=== PATIENT | male | born 1955 | race Caucasian/White ===

== ENCOUNTER 2021-10-21 16:06 | Inpatient (IN) ==
[2021-10-21 16:17] LABS: ABG BASE EXCESS -2.7 mmol/L (-2.0-2.0); ABG HCO3 19.7 mmol/L (22-26)
[2021-10-21 16:18] LABS: ABG ALLEN TEST POS
[2021-10-21 16:21] VITALS: BMI 33.0
[2021-10-21] MEDS ORDERED: SOLU-Medrol 125 MG VIAL IVP ONE (16:32)
--- NOTE | 2021-10-21 16:38 | DR.URIAD ---
HPI Time Seen Time Seen by Provider: 10/21/21 16:32 PCP Primary Care Physician: RAJAT HPI Comment HPI Comment: Worsening sob and cough x past several days after dx with covid two weeks ago as below; no cp, fevers or chills currently; no abd pain, n/v/d; he is not on oxygen at home Complaint Chief Complaint:: Patient's states that the patient has had Covid for roughly for two weeks. They came to the ER last Suday and recieved prescriptions for meclizine and methylprenisone. He was already taking Azithomycin, albuterol, benzonate, hydroxychloroquine, and Ivermectin. He has gotten worse over the last week and is having issues keeping his oxygen above 90. Source History Provided: Significant Other Mode of Arrival Mode of Arrival: Ambulatory Timing Onset of Chief Complaint: 10/07/21 PMH PMH Past Medical History: Yes Past Medical History: Coronary Artery Disease and [place] Past Medical History Comment: X5 stents Past Surgical History: Yes Surgical History: Angioplasty/Stents and Joint Replacement Past Surgical History Comment: left Hip and right knee Family History History of Family Medical Conditions: Yes Family Medical History: Diabetes Mellitus, Cancer, [place] and Coronary Artery Disease Social History Does patient currently use any type of tobacco product: No Have you used tobacco products in the last 12 months: No Type of Tobacco Use: None Does any household member use tobacco: No Alcohol Use: None Do you use any recreational Drugs:: No Lives With: Spouse Lives Where: Home Infectious screening In the last 2 months have you had wt loss of >10#?: NO Have you had fever, night sweats or hemotysis?: No Have you traveled outside the country in the last 6 months?: No Isolation: Droplet ROS Review of Systems Constitutional: No Symptoms Reported Eyes: No Symptoms Reported ENTM: No Symptoms Reported Cardiovascular: No Symptoms Reported Gastrointestinal/Abdominal: No Symptoms Reported Genitourinary: No Symptoms Reported Neurological: No Symptoms Reported Musculoskeletal: No Symptoms Reported Integumentary: No Symptoms Reported Hematologic/Lymphatic: No Symptoms Reported Endocrine: No Symptoms Reported Psychiatric: No Symptoms Reported PE Vital Signs Vitals: Temperature 98.1 F Pulse Rate 107 Respiratory Rate 18 Blood Pressure [Left Arm] 113/74 Blood Pressure 119/76 O2 Sat by Pulse Oximetry 81 General Limitations: No Limitations General Appearance: Alert and Other (obviously weak with walking, using accessory muscles) Head Head Exam: Normal Inspection Eyes Eye exam: Normal Appearance ENT ENT Exam: Normal Exam External Ear Exam: Normal External Inspection TM/Canal Exam: Bilateral: Normal Nose Exam: Normal Nose Exam Nasal Speculum Exam: Bilateral: Normal Mouth Exam: Normal Inspection Throat Exam: Normal Inspection Neck Neck Exam: Normal Inspection Chest Chest Inspection: Normal Inspection Respiratory Respiratory Exam: Normal Lung Sounds Bilat and Accessory Muscle Use Respiratory Exam: Bilateral: Clear to Auscultation Cardiovascular Cardiovascular Exam: Normal Rhythm and Tachycardia Abdominal Exam Abdominal Exam: Normal Inspection, Normal Bowel Sounds and Soft Extremeties Extremities Exam: Normal Inspection Back Back Exam: Normal Inspection Neurologic Neurological Exam: Alert and Oriented X3 Psychiatric Psychiatric Exam: Normal Affect and Normal Mood Skin Skin Exam: Warm, Dry, Intact and Normal Color MDM Differential Diagnosis Differential Diagnosis: Pneumonia COURSE Reevaluation 1st: Unchanged 2nd: Improved (resting flat on back with nrb; says "I feel better".) Consultation Called: 18:40 Education/Counseling Education/Counseling: Patient and Family Educated On: Treatment, Diagnosis and Prognosis Critical Care Notes Total Time (mins): 30 Critical Diagnosis: covid pneu, sepsis, hypoxic resp failure Critical Interventions: abg, oxgyen inc to nrb, labs, ct, abx, steroids dx, prognosis and admission requirements d/w pt and discussed admission with Dr Braeden VELA Labs Reviewed Result Diagrams: 10/21/21 16:18 10/21/21 16:48 Laboratory: WBC 10.2 X10^3/uL (3.6-10.0) H 10/21/21 16:18 RBC 5.29 X10^6/uL (4.7-6.0) 10/21/21 16:18 Hgb 15.6 g/dL (13.5-18.0) 10/21/21 16:18 Hct 44.8 % (42.0-54.0) 10/21/21 16:18 MCV 84.7 fL (80.0-100.0) 10/21/21 16:18 MCH 29.5 pg (27.0-34.0) 10/21/21 16:18 MCHC 34.8 g/dL (33.0-35.0) 10/21/21 16:18 RDW 14.7 % (11.6-16.5) 10/21/21 16:18 Plt Count 262 X10^3/uL (150.0-450.0) 10/21/21 16:18 Plt Count Comment Adequate (ADEQUATE) 10/21/21 16:18 MPV 8.1 fL (7.4-11.0) 10/21/21 16:18 Neut % (Auto) 90.1 % (42.0-75.0) H 10/21/21 16:18 Lymph % (Auto) 5.1 % (21.0-51.0) L 10/21/21 16:18 [place] % (Auto) 4.6 % (0.0-13.0) 10/21/21 16:18 Eos % (Auto) 0.0 % (0.9-2.9) L 10/21/21 16:18 Baso % (Auto) 0.2 % (0.2-1.0) 10/21/21 16:18 Neut # (Auto) 9.2 x10^3/uL (2.2-4.8) H 10/21/21 16:18 Lymph # (Auto) 0.5 X10^3/uL (1.3-2.9) L 10/21/21 16:18 [place] # (Auto) 0.5 x10^3/uL (0.3-0.8) 10/21/21 16:18 Eos # (Auto) 0.0 x10^3/uL (0.0-0.2) 10/21/21 16:18 Baso # (Auto) 0.0 X10^3/uL (0.0-0.1) 10/21/21 16:18 Absolute Nucleated RBC 0.1 /100WBC 10/21/21 16:18 Total Counted 100 10/21/21 16:18 Neutrophils % (Manual) 92 % (39-76) H 10/21/21 16:18 Lymphocytes % (Manual) 3 % (13-43) L 10/21/21 16:18 Monocytes % (Manual) 5 % (4-9) 10/21/21 16:18 Plt Morphology Comment Normal (NORMAL) 10/21/21 16:18 RBC Morphology Normal (NORMAL) 10/21/21 16:18 Sample Site Lrad 10/21/21 16:09 ABG pH 7.470 (7.35-7.45) H 10/21/21 16:09 ABG pCO2 27.0 mmHg (35.0-45.0) L 10/21/21 16:09 ABG pO2 45.0 mmHg (80.0-100.0) L* 10/21/21 16:09 ABG HCO3 19.7 mmol/L (22-26) L 10/21/21 16:09 ABG O2 Saturation 84.0 % (90-100) L* 10/21/21 16:09 ABG Base Excess -2.7 mmol/L (-2.0-2.0) L 10/21/21 16:09 Jose G Test Pos 10/21/21 16:09 A-a Gradient 71.0 mmHg 10/21/21 16:09 FiO2 21.0 10/21/21 16:09 Blood Gas Comments Pt mariano well elj cdn 10/21/21 16:09 Sodium 136 mmol/L (136-145) 10/21/21 16:48 Corrected Sodium 136 mmol/L (136-145) 10/21/21 16:48 Potassium 4.2 mmol/L (3.5-5.1) 10/21/21 16:48 Chloride 101 mmol/L (98-107) 10/21/21 16:48 Carbon Dioxide 19.8 mmol/L (21-32) L 10/21/21 16:48 BUN 26 mg/dL (7-18) H 10/21/21 16:48 Creatinine 1.03 mg/dL (0.70-1.30) 10/21/21 16:48 Est GFR (MDRD) Af Amer > 60 (>60) 10/21/21 16:48 Est GFR (MDRD) Non-Af > 60 (>60) 10/21/21 16:48 Glucose 112 mg/dL (65-99) H 10/21/21 16:48 Calcium 8.5 mg/dL (8.5-10.1) 10/21/21 16:48 Creatine Kinase 60 Units/L (39-308) 10/21/21 16:48 CK-MB (CK-2) 0.4 ng/mL (0-4.0) 10/21/21 16:48 CK/CKMB % Calc 0.7 % (<4) 10/21/21 16:48 Troponin I High Sens 6.3 ng/L (4.0-60.0) 10/21/21 16:48 SARS-CoV-2 (PCR) Positive (NEGATIVE) A 10/21/21 16:30 Influenza Type A (PCR) Negative (NEGATIVE) 10/21/21 16:30 Influenza Type B (PCR) Negative (NEGATIVE) 10/21/21 16:30 RSV (PCR) Negative (NEGATIVE) 10/21/21 16:30 Opioid Opioid Risk Tool Age (Guido box if 16-45): No History of Preadolescent Sexual Abuse: No Total: 0 Total Score Risk Category: Low Risk Copyright: [facility] predicting aberrant behaviors Diagnosis Discharge Problem: Hypoxia Instructions Forms: Precautions for COVID19 [facility] Patient Portal Social Distancing
[2021-10-21] MEDS ORDERED: NS 100 ML IV 100 ML ONE (16:46)
[2021-10-21 16:49] LABS: BASOPHILS % (AUTO) 0.2 % (0.2-1.0); HEMATOCRIT 44.8 % (42.0-54.0); HEMOGLOBIN 15.6 g/dL (13.5-18.0); LYMPHOCYTES # (AUTO) 0.5 X10^3/uL (1.3-2.9); LYMPHOCYTES % (AUTO) 5.1 % (21.0-51.0); MEAN CORPUSCULAR HEMOGLOBIN 29.5 pg (27.0-34.0); MEAN CORPUSCULAR HGB CONC 34.8 g/dL (33.0-35.0); MEAN CORPUSCULAR VOLUME 84.7 fL (80.0-100.0); MEAN PLATELET VOLUME 8.1 fL (7.4-11.0); MONOCYTES # (AUTO) 0.5 x10^3/uL (0.3-0.8); MONOCYTES % (AUTO) 4.6 % (0.0-13.0); NEUTROPHILS # (AUTO) 9.2 x10^3/uL (2.2-4.8); NEUTROPHILS % (AUTO) 90.1 % (42.0-75.0); RED BLOOD COUNT 5.29 X10^6/uL (4.7-6.0); RED CELL DISTRIBUTION WIDTH 14.7 % (11.6-16.5); WHITE BLOOD COUNT 10.2 X10^3/uL (3.6-10.0)
[2021-10-21 17:00] LABS: BLOOD UREA NITROGEN 26 mg/dL (7-18); CALCIUM 8.5 mg/dL (8.5-10.1); CARBON DIOXIDE 19.8 mmol/L (21-32); CHLORIDE 101 mmol/L (98-107); COR NA(FOR HYPERGLY) 136 mmol/L (136-145); CREATININE 1.03 mg/dL (0.70-1.30); SODIUM 136 mmol/L (136-145); eGFR NON BLACK RACES > 60 (>60)
[2021-10-21 17:10] LABS: PLATELET MORPHOLOGY COMMENT NORMAL (NORMAL)
[2021-10-21] MEDS ORDERED: SOLU-Medrol 125 MG VIAL ONE (17:16)
[2021-10-21] MEDS ORDERED: ZOSYN VIAL 4.5 GRAMS IV ONE (17:17)
[2021-10-21] MEDS ORDERED: NS 100 ML IV + SPIKE MINIBAG* 100 ML IV ONE (17:17)
[2021-10-21] MEDS: ZOSYN VIAL 4.5 GRAMS 4.5 G in NS 100 ML IV 100 ML IV SCH ×2 (17:24→23:09)
[2021-10-21 17:29] LABS: CKMB % 0.7 % (<4); CREATINE KINASE 60 Units/L (39-308); CREATINE KINASE MB 0.4 ng/mL (0-4.0)
--- NOTE | 2021-10-21 18:01 | CT ---
HISTORYCOVID POSITIVE, HYPOXIA, LOW [id number] WITH CONCOMPARISONNoneTECHNIQUEMultiple axial images of the chest were obtained from the thoracic inlet to the upper abdomen after the administration of IV contrast. 3D reconstructions utilizing axial MIPS imaging was performed and reviewed. Dose reduction techniques including Automated Exposure Control (AEC) and adjustment of mA and kV were utilized.FINDINGSThe mediastinum does not demonstrate significant pathological lymphadenopathy. There is no pericardial effusion observed. Coronary arterial calcifications are noted. The thoracic aorta is normal in its contour without evidence for aneurysmal dilatation. The central pulmonary arterial system does not demonstrate central filling defects to suggest pulmonary emboli. More distal branches are not well evaluated due to timing of the bolus.Evaluation of the lung parenchyma demonstrates hazy scattered ground-glass opacities throughout the lung dixon compatible history of COVID-19 pneumonia.. No pulmonary nodule or mass can be identified. The bony thorax demonstrates mild degenerative changes in the lower spine.. The visualized portions of the upper abdomen are grossly unremarkable .IMPRESSIONScattered ground-glass opacities throughout the lung dixon compatible history of COVID-19 pneumonia.Electronically signed by: JONATHON MCALLISTER (Oct 21, 2021 17:59:54)
[2021-10-21] MEDS ORDERED: ZOSYN VIAL 3.375 GRAMS 3.375 G in NS 100 ML IV + SPIKE MINIBAG* 100 ML IV SCH (18:52)
[2021-10-21] MEDS ORDERED: OFIRMEV IV 1000 MG VIAL 1,000 MG/100 ML VIAL IV PRN (18:54)
[2021-10-21] MEDS ORDERED: TUSSIONEX PENNKINETIC SUSP PO PRN (18:54)
[2021-10-21] MEDS ORDERED: ZOFRAN INJ 4 MG VIAL IVP PRN (18:54)
[2021-10-21] MEDS ORDERED: NS 1,000 ML IV 1,000 ML ONE (19:10)
[2021-10-21] MEDS ORDERED: ZITHROMAX INJ 500 MG VIAL IV ONE (19:10)
[2021-10-21] MEDS ORDERED: D5W 250 ML IV 250 ML IV ONE (19:11)
[2021-10-21] MEDS: NS 1,000 ML IV 1,000 ML IV SCH (19:15)
[2021-10-21] MEDS: ZITHROMAX INJ 500 MG VIAL 500 MG in D5W 250 ML IV 250 ML IV SCH (19:16)
[2021-10-21] MEDS: SOLU-Medrol 125 MG VIAL IVP SCH (19:16)
[2021-10-22] MEDS ORDERED: ZOSYN VIAL 4.5 GRAMS IV ONE (05:09)
[2021-10-22 05:12] LABS: BASOPHILS % (AUTO) 0.1 % (0.2-1.0); BLOOD UREA NITROGEN 24 mg/dL (7-18); CALCIUM 8.3 mg/dL (8.5-10.1); CARBON DIOXIDE 20.3 mmol/L (21-32); CHLORIDE 103 mmol/L (98-107); COR NA(FOR HYPERGLY) 137 mmol/L (136-145); CREATININE 0.99 mg/dL (0.70-1.30); HEMATOCRIT 38.9 % (42.0-54.0); HEMOGLOBIN 13.3 g/dL (13.5-18.0); LYMPHOCYTES # (AUTO) 0.5 X10^3/uL (1.3-2.9); LYMPHOCYTES % (AUTO) 10.6 % (21.0-51.0); MEAN CORPUSCULAR HGB CONC 34.2 g/dL (33.0-35.0); MEAN CORPUSCULAR VOLUME 84.8 fL (80.0-100.0); MONOCYTES # (AUTO) 0.1 x10^3/uL (0.3-0.8); MONOCYTES % (AUTO) 2.7 % (0.0-13.0); NEUTROPHILS # (AUTO) 3.7 x10^3/uL (2.2-4.8); NEUTROPHILS % (AUTO) 86.6 % (42.0-75.0); RED BLOOD COUNT 4.59 X10^6/uL (4.7-6.0); RED CELL DISTRIBUTION WIDTH 14.4 % (11.6-16.5); SODIUM 135 mmol/L (136-145); WHITE BLOOD COUNT 4.3 X10^3/uL (3.6-10.0); eGFR NON BLACK RACES > 60 (>60)
[2021-10-22] MEDS: ZOSYN VIAL 4.5 GRAMS 4.5 G in NS 100 ML IV 100 ML IV SCH ×3 (06:18→21:46)
[2021-10-22] MEDS ORDERED: PULMICORT NEB TX 0.5 MG NEB ONE (07:59)
[2021-10-22] MEDS ORDERED: BROVANA ONE (07:59)
[2021-10-22] MEDS: BROVANA IN SCH ×2 (08:39→21:34)
[2021-10-22] MEDS: PULMICORT NEB TX 0.5 MG NEB SCH ×2 (08:39→21:34)
[2021-10-22] MEDS: NS 1,000 ML IV 1,000 ML IV SCH ×2 (09:00→21:45)
[2021-10-22] MEDS ORDERED: REMDESIVIR 200 MG in NS 100 ML IV 140 ML IV ONE (09:46)
[2021-10-22] MEDS: VITAMIN A PO SCH (10:50)
[2021-10-22] MEDS: PROTONIX TAB 40 MG PO SCH (10:50)
[2021-10-22] MEDS: VITAMIN C PO SCH (10:50)
[2021-10-22] MEDS: PLAVIX PO SCH (10:50)
[2021-10-22] MEDS: ZITHROMAX INJ 500 MG VIAL 500 MG in D5W 250 ML IV 250 ML IV SCH (10:55)
[2021-10-22] MEDS: LIPITOR TAB 80 MG PO SCH (10:55)
[2021-10-22] MEDS: SOLU-Medrol 125 MG VIAL IVP SCH ×2 (10:59→18:28)
[2021-10-22] MEDS: VITAMIN D3 125 mcg (5,000 UNITS) PO SCH (10:59)
[2021-10-22] MEDS: ZESTRIL TAB 5 MG PO SCH (10:59)
--- NOTE | 2021-10-22 11:55 | DR.H&P ---
H&P History & Physical for Day of: H&P Date: 10/22/21 Chief Complaint Chief Complaint: cough, shortness of breath Allergies Allergies Allergy/AdvReac Type Severity Reaction Status Date / Time No Known Drug Allergies Allergy Verified 10/15/21 17:20 History of Present Illness History of Present Illness: Mr Cuellar is a 66y/o male with a PMH of CAD s/p PCI x 5 stents presented with worsening dyspnea and weakness. Patient tested positive for covid about 2 weeks ago. He reports getting weaker and having worsening dyspnea. He is currently on HHFNC at FiO2 62%. He reports productive cough. CT-chest in the ER showed bilateral ground glass opacities. He currently feels better, sats > 92%. Labs/imaging reviewed Plan: Admit to ICU with COVID-19 protocol, continue IV Solumedrol and antibiotics. Add Remdesivir. Add vitamin support. Continue hydration with NS. Wean O2 as tolerated to keep sats > 88%. Add lovenox for DVT ppx. Monitor AM labs/imaging. Time spent for clinical assessment, reviewing labs/imaging, physical exam, decision making and documentation greater than 45 mins. Past Medical History Past Medical History: Coronary Artery Disease and [place] Past Surgical History Surgical History: Angioplasty/Stents and Ortho Surgery Family History Family Medical History: Diabetes Mellitus, [place], Coronary Artery Disease and Heart Failure Social History Does patient currently use any type of tobacco product: No Have you used tobacco products in the last 12 months: No Type of Tobacco Use: None Does any household member use tobacco: No Alcohol Use: None Drug Use: None Prescription drug monitoring program results: PDMP reviewed and no concerns identified Medications Home Medications: No Known Drug Allergies Allergy (Verified 10/15/21 17:20) Labs Result Diagrams: 10/22/21 04:15 10/22/21 04:15 Labs: Laboratory WBC 4.3 X10^3/uL (3.6-10.0) 10/22/21 04:15 RBC 4.59 X10^6/uL (4.7-6.0) L 10/22/21 04:15 Hgb 13.3 g/dL (13.5-18.0) L D 10/22/21 04:15 Hct 38.9 % (42.0-54.0) L 10/22/21 04:15 MCV 84.8 fL (80.0-100.0) 10/22/21 04:15 MCH 29.0 pg (27.0-34.0) 10/22/21 04:15 MCHC 34.2 g/dL (33.0-35.0) 10/22/21 04:15 RDW 14.4 % (11.6-16.5) 10/22/21 04:15 Plt Count 238 X10^3/uL (150.0-450.0) 10/22/21 04:15 Plt Count Comment Adequate (ADEQUATE) 10/21/21 16:18 MPV 8.0 fL (7.4-11.0) 10/22/21 04:15 Neut % (Auto) 86.6 % (42.0-75.0) H 10/22/21 04:15 Lymph % (Auto) 10.6 % (21.0-51.0) L 10/22/21 04:15 [place] % (Auto) 2.7 % (0.0-13.0) 10/22/21 04:15 Eos % (Auto) 0.0 % (0.9-2.9) L 10/22/21 04:15 Baso % (Auto) 0.1 % (0.2-1.0) L 10/22/21 04:15 Neut # (Auto) 3.7 x10^3/uL (2.2-4.8) 10/22/21 04:15 Lymph # (Auto) 0.5 X10^3/uL (1.3-2.9) L 10/22/21 04:15 [place] # (Auto) 0.1 x10^3/uL (0.3-0.8) L 10/22/21 04:15 Eos # (Auto) 0.0 x10^3/uL (0.0-0.2) 10/22/21 04:15 Baso # (Auto) 0.0 X10^3/uL (0.0-0.1) 10/22/21 04:15 Absolute Nucleated RBC 0.0 /100WBC 10/22/21 04:15 Total Counted 100 10/21/21 16:18 Neutrophils % (Manual) 92 % (39-76) H 10/21/21 16:18 Lymphocytes % (Manual) 3 % (13-43) L 10/21/21 16:18 Monocytes % (Manual) 5 % (4-9) 10/21/21 16:18 Plt Morphology Comment Normal (NORMAL) 10/21/21 16:18 RBC Morphology Normal (NORMAL) 10/21/21 16:18 Sample Site Lrad 10/21/21 16:09 ABG pH 7.470 (7.35-7.45) H 10/21/21 16:09 ABG pCO2 27.0 mmHg (35.0-45.0) L 10/21/21 16:09 ABG pO2 45.0 mmHg (80.0-100.0) L* 10/21/21 16:09 ABG HCO3 19.7 mmol/L (22-26) L 10/21/21 16:09 ABG O2 Saturation 84.0 % (90-100) L* 10/21/21 16:09 ABG Base Excess -2.7 mmol/L (-2.0-2.0) L 10/21/21 16:09 Jose G Test Pos 10/21/21 16:09 A-a Gradient 71.0 mmHg 10/21/21 16:09 FiO2 21.0 10/21/21 16:09 Blood Gas Comments Pt mariano well elj cdn 10/21/21 16:09 Sodium 135 mmol/L (136-145) L 10/22/21 04:15 Corrected Sodium 137 mmol/L (136-145) 10/22/21 04:15 Potassium 4.2 mmol/L (3.5-5.1) 10/22/21 04:15 Chloride 103 mmol/L (98-107) 10/22/21 04:15 Carbon Dioxide 20.3 mmol/L (21-32) L 10/22/21 04:15 BUN 24 mg/dL (7-18) H 10/22/21 04:15 Creatinine 0.99 mg/dL (0.70-1.30) 10/22/21 04:15 Est GFR (MDRD) Af Amer > 60 (>60) 10/22/21 04:15 Est GFR (MDRD) Non-Af > 60 (>60) 10/22/21 04:15 Glucose 189 mg/dL (65-99) H 10/22/21 04:15 POC Glucose (mg/dL) 202 mg/dL (65-99) H 10/22/21 11:50 Calcium 8.3 mg/dL (8.5-10.1) L 10/22/21 04:15 Creatine Kinase 60 Units/L (39-308) 10/21/21 16:48 CK-MB (CK-2) 0.4 ng/mL (0-4.0) 10/21/21 16:48 CK/CKMB % Calc 0.7 % (<4) 10/21/21 16:48 Troponin I High Sens 6.3 ng/L (4.0-60.0) 10/21/21 16:48 SARS-CoV-2 (PCR) Positive (NEGATIVE) A 10/21/21 16:30 Influenza Type A (PCR) Negative (NEGATIVE) 10/21/21 16:30 Influenza Type B (PCR) Negative (NEGATIVE) 10/21/21 16:30 RSV (PCR) Negative (NEGATIVE) 10/21/21 16:30 Review of Systems Constitutional: Weakness and Malaise Eyes: No Symptoms Reported ENT: No Symptoms Reported Respiratory: Cough, Shortness of Breath, SOB with Excertion and Sputum Cardiovascular: No Symptoms Reported Gastrointestinal: No Symptoms Reported Genitourinary: No Symptoms Reported Musculoskeletal: No Symptoms Reported Skin: No Symptoms Reported Neurological: No Symptoms Reported Physical Exam Vital Signs: Temperature 97.5 F Pulse Rate [Radial] 73 Pulse Rate 52 Respiratory Rate 21 Blood Pressure [Left Arm] 113/74 Blood Pressure 121/65 O2 Sat by Pulse Oximetry 93 Oriented: Normal Eyes: Normal Ear: Normal Nose: Normal Throat: Normal Respiratory: Diminished Throughout and Rhonchi Throughout Cardiovascular: Normal Auscultation: Bowel Sounds: Normal Palpation: Normal Tenderness: Normal Skin: Decreased [place] Musculoskeletal: Normal Psychiatric: Normal Mood Description: Calm Affect: Normal Speech Pattern: Clear and Appropriate Assessment/Plan (1) Pneumonia due to COVID-19 virus: Status: Acute (2) Acute respiratory failure with hypoxia: Status: Acute (3) Generalized weakness: Status: Acute (4) CAD (coronary artery disease): Qualifiers: Associated angina: unspecified whether angina present Coronary Disease- Associated Artery/Lesion type: unspecified vessel or lesion type [place] vs. transplanted heart: [place] heart Qualified Code(s): I25.10 - Atherosclerotic heart disease of [place] coronary artery without angina pectoris Status: Acute (5) HLD (hyperlipidemia): Qualifiers: Hyperlipidemia type: unspecified Qualified Code(s): E78.5 - Hyperlipidemia, unspecified Status: Acute Review H&P Reviewed: Yes Patient was examined?: Yes
[2021-10-22] MEDS: NovoLIN R (or HumuLIN R) SC PRN (12:40)
[2021-10-22] MEDS: LOVENOX INJ 40 MG SYR SC SCH (21:45)
[2021-10-23] MEDS: SOLU-Medrol 125 MG VIAL IVP SCH ×3 (02:43→17:26)
[2021-10-23] MEDS: ZOSYN VIAL 4.5 GRAMS 4.5 G in NS 100 ML IV 100 ML IV SCH ×3 (06:12→22:00)
[2021-10-23 06:29] LABS: BASOPHILS % (AUTO) 0.1 % (0.2-1.0); HEMATOCRIT 36.7 % (42.0-54.0); HEMOGLOBIN 12.8 g/dL (13.5-18.0); LYMPHOCYTES # (AUTO) 0.5 X10^3/uL (1.3-2.9); LYMPHOCYTES % (AUTO) 6.9 % (21.0-51.0); MEAN CORPUSCULAR HEMOGLOBIN 29.5 pg (27.0-34.0); MEAN CORPUSCULAR HGB CONC 34.9 g/dL (33.0-35.0); MEAN CORPUSCULAR VOLUME 84.6 fL (80.0-100.0); MONOCYTES # (AUTO) 0.3 x10^3/uL (0.3-0.8); MONOCYTES % (AUTO) 3.7 % (0.0-13.0); NEUTROPHILS # (AUTO) 6.5 x10^3/uL (2.2-4.8); NEUTROPHILS % (AUTO) 89.3 % (42.0-75.0); RED BLOOD COUNT 4.34 X10^6/uL (4.7-6.0); RED CELL DISTRIBUTION WIDTH 14.4 % (11.6-16.5); WHITE BLOOD COUNT 7.3 X10^3/uL (3.6-10.0)
[2021-10-23 06:32] LABS: BLOOD UREA NITROGEN 25 mg/dL (7-18); CALCIUM 8.1 mg/dL (8.5-10.1); CHLORIDE 105 mmol/L (98-107); COR NA(FOR HYPERGLY) 138 mmol/L (136-145); CREATININE 0.94 mg/dL (0.70-1.30); SODIUM 136 mmol/L (136-145); eGFR NON BLACK RACES > 60 (>60)
[2021-10-23] MEDS: NovoLIN R (or HumuLIN R) SC PRN ×3 (06:39→22:00)
[2021-10-23] MEDS: LIPITOR TAB 80 MG PO SCH (08:30)
[2021-10-23] MEDS: ZESTRIL TAB 5 MG PO SCH (08:35)
[2021-10-23] MEDS: PROTONIX TAB 40 MG PO SCH (08:35)
[2021-10-23] MEDS: PLAVIX PO SCH (08:35)
[2021-10-23] MEDS: ZINC SULFATE PO SCH (08:35)
[2021-10-23] MEDS: VITAMIN C PO SCH (08:35)
[2021-10-23] MEDS: VITAMIN D3 125 mcg (5,000 UNITS) PO SCH (08:35)
[2021-10-23] MEDS: LOVENOX INJ 40 MG SYR SC SCH (08:35)
[2021-10-23] MEDS: VITAMIN A PO SCH (08:35)
[2021-10-23] MEDS: BROVANA IN SCH ×2 (08:55→21:06)
[2021-10-23] MEDS: PULMICORT NEB TX 0.5 MG NEB SCH ×2 (08:55→21:06)
[2021-10-23] MEDS: ZITHROMAX INJ 500 MG VIAL 500 MG in D5W 250 ML IV 250 ML IV SCH (09:35)
[2021-10-23] MEDS: NS 1,000 ML IV 1,000 ML IV SCH (11:04)
[2021-10-23] MEDS: REMDESIVIR 100 MG in NS 250 ML IV 250 ML IV SCH (11:07)
--- NOTE | 2021-10-23 15:24 | CT ---
CTA CHESTCLINICAL INDICATION: COVID +. SOBPROCEDURE: Non gated axial images of the chest were obtained with intravenous contrast according to pulmonary embolism protocol. MIPS were reconstructed Dose reduction techniques including Automated Exposure Control (AEC) and adjustment of mA and kV were utlized.COMPARISON:NoneFINDINGS:No evidence of a pulmonary embolism to the level of the segmental pulmonary arteries.The heart is normal in size . No pericardial effusion.Severe coronary calcification. Patchy bilateral ground-glass opacities are present. No suspicious mediastinal or axillary lymph nodes . No focal consolidations, pleural effusions or pneumothorax .Airways are patent . No suspicious pulmonary nodules or masses .Limited images of the upper abdomen are unremarkable.No aggressive osseous lesions.IMPRESSION:1. No evidence of pulmonary embolism.2. Patchy bilateral ground-glass opacities consistent with acute, atypical infection including viral etiologies.Electronically signed by: VILMA DELACRUZ (Oct 23, 2021 15:23:22)
--- NOTE | 2021-10-23 15:36 | PCM.PROG ---
Progress Note Progress Note for Day of Date of Exam: 10/23/21 Subjective Subjective: Patient seen at bedside, no events overnight. He remains on HHFNC FiO2 60% with sats > 88%. He states he feels slightly better. He has been coughing up. His appetite is still not there. Denies N/V/D. Denies fever or chills. Labs/imaging reviewed Plan: Will order CTA to rule out PE. Continue IV Remdesivir, antibiotics and solumedrol. Continue vitamin support and hydration. Continue nebs and pulmicort. Advised patient to use IS as tolerated. PT/OT as tolerated. Continue COVID-19 pr otocol. Wean O2 as tolerated to keep sats > 88%, Monitor AM labs/imaging. Time spent for clinical assessment, reviewing labs/imaging, physical exam, documentation and decision making greater than 45 mins. Past Medical Family Social History Past Med/Fam/Surg Hx: No changes since H&P Allergies: Allergies No Known Drug Allergies Allergy (Verified 10/15/21 17:20) Review of Systems ROS: No change since H&P Vital Signs and I&O's Vital Signs: Temperature 97.2 F Pulse Rate [Radial] 73 Pulse Rate 60 Respiratory Rate 17 Blood Pressure [Left Arm] 113/74 Blood Pressure 117/72 O2 Sat by Pulse Oximetry 93 Intake and Output: Intake & Output 10/20/21 10/21/21 10/22/21 10/23/21 23:59 23:59 23:59 23:59 Intake Total 466 / 466 3164 / 3164 2470 / 2470 Output Total 625 / 625 1901 / 1901 1450 / 1450 Balance -159 / -159 1263 / 1263 1020 / 1020 Physical Exam Oriented: Normal Eyes: Normal Ear: Normal Nose: Normal Throat: Normal Respiratory: Generalized and Diminished Cardiovascular: Normal Auscultation: Bowel Sounds: Normal Tenderness: Normal Skin: Decreased [place] Musculoskeletal: Normal Psychiatric: Normal Mood Description: Calm Affect: Normal Speech Pattern: Clear and Appropriate Laboratory and Diagnostics Result Diagrams: 10/23/21 05:37 10/23/21 05:37 Labs: Laboratory WBC 7.3 X10^3/uL (3.6-10.0) 10/23/21 05:37 RBC 4.34 X10^6/uL (4.7-6.0) L 10/23/21 05:37 Hgb 12.8 g/dL (13.5-18.0) L 10/23/21 05:37 Hct 36.7 % (42.0-54.0) L 10/23/21 05:37 MCV 84.6 fL (80.0-100.0) 10/23/21 05:37 MCH 29.5 pg (27.0-34.0) 10/23/21 05:37 MCHC 34.9 g/dL (33.0-35.0) 10/23/21 05:37 RDW 14.4 % (11.6-16.5) 10/23/21 05:37 Plt Count 226 X10^3/uL (150.0-450.0) 10/23/21 05:37 Plt Count Comment Adequate (ADEQUATE) 10/21/21 16:18 MPV 8.0 fL (7.4-11.0) 10/23/21 05:37 Neut % (Auto) 89.3 % (42.0-75.0) H 10/23/21 05:37 Lymph % (Auto) 6.9 % (21.0-51.0) L 10/23/21 05:37 [place] % (Auto) 3.7 % (0.0-13.0) 10/23/21 05:37 Eos % (Auto) 0.0 % (0.9-2.9) L 10/23/21 05:37 Baso % (Auto) 0.1 % (0.2-1.0) L 10/23/21 05:37 Neut # (Auto) 6.5 x10^3/uL (2.2-4.8) H 10/23/21 05:37 Lymph # (Auto) 0.5 X10^3/uL (1.3-2.9) L 10/23/21 05:37 [place] # (Auto) 0.3 x10^3/uL (0.3-0.8) 10/23/21 05:37 Eos # (Auto) 0.0 x10^3/uL (0.0-0.2) 10/23/21 05:37 Baso # (Auto) 0.0 X10^3/uL (0.0-0.1) 10/23/21 05:37 Absolute Nucleated RBC 0.0 /100WBC 10/23/21 05:37 Total Counted 100 10/21/21 16:18 Neutrophils % (Manual) 92 % (39-76) H 10/21/21 16:18 Lymphocytes % (Manual) 3 % (13-43) L 10/21/21 16:18 Monocytes % (Manual) 5 % (4-9) 10/21/21 16:18 Plt Morphology Comment Normal (NORMAL) 10/21/21 16:18 RBC Morphology Normal (NORMAL) 10/21/21 16:18 Sample Site Lrad 10/21/21 16:09 ABG pH 7.470 (7.35-7.45) H 10/21/21 16:09 ABG pCO2 27.0 mmHg (35.0-45.0) L 10/21/21 16:09 ABG pO2 45.0 mmHg (80.0-100.0) L* 10/21/21 16:09 ABG HCO3 19.7 mmol/L (22-26) L 10/21/21 16:09 ABG O2 Saturation 84.0 % (90-100) L* 10/21/21 16:09 ABG Base Excess -2.7 mmol/L (-2.0-2.0) L 10/21/21 16:09 Jose G Test Pos 10/21/21 16:09 A-a Gradient 71.0 mmHg 10/21/21 16:09 FiO2 21.0 10/21/21 16:09 Blood Gas Comments Pt mariano well elj cdn 10/21/21 16:09 Sodium 136 mmol/L (136-145) 10/23/21 05:37 Corrected Sodium 138 mmol/L (136-145) 10/23/21 05:37 Potassium 4.5 mmol/L (3.5-5.1) 10/23/21 05:37 Chloride 105 mmol/L (98-107) 10/23/21 05:37 Carbon Dioxide 22.0 mmol/L (21-32) 10/23/21 05:37 BUN 25 mg/dL (7-18) H 10/23/21 05:37 Creatinine 0.94 mg/dL (0.70-1.30) 10/23/21 05:37 Est GFR (MDRD) Af Amer > 60 (>60) 10/23/21 05:37 Est GFR (MDRD) Non-Af > 60 (>60) 10/23/21 05:37 Glucose 170 mg/dL (65-99) H 10/23/21 05:37 POC Glucose (mg/dL) 155 mg/dL (65-99) H 10/23/21 11:35 Calcium 8.1 mg/dL (8.5-10.1) L 10/23/21 05:37 Creatine Kinase 60 Units/L (39-308) 10/21/21 16:48 CK-MB (CK-2) 0.4 ng/mL (0-4.0) 10/21/21 16:48 CK/CKMB % Calc 0.7 % (<4) 10/21/21 16:48 Troponin I High Sens 6.3 ng/L (4.0-60.0) 10/21/21 16:48 SARS-CoV-2 (PCR) Positive (NEGATIVE) A 10/21/21 16:30 Influenza Type A (PCR) Negative (NEGATIVE) 10/21/21 16:30 Influenza Type B (PCR) Negative (NEGATIVE) 10/21/21 16:30 RSV (PCR) Negative (NEGATIVE) 10/21/21 16:30 Plan (1) Pneumonia due to COVID-19 virus: Status: Acute (2) Acute respiratory failure with hypoxia: Status: Acute (3) Generalized weakness: Status: Acute (4) CAD (coronary artery disease): Status: Acute Qualifiers: Associated angina: unspecified whether angina present Coronary Disease- Associated Artery/Lesion type: unspecified vessel or lesion type [place] vs. transplanted heart: [place] heart Qualified Code(s): I25.10 - Atherosclerotic heart disease of [place] coronary artery without angina pectoris (5) HLD (hyperlipidemia): Status: Acute Qualifiers: Hyperlipidemia type: unspecified Qualified Code(s): E78.5 - Hyperlipidemia, unspecified
[2021-10-23 16:06] LABS: BILIRUBIN,URINE NEGATIVE (NEGATIVE); BLOOD/HEMOGLOBIN,URINE NEGATIVE (NEGATIVE); GLUCOSE, URINE NEGATIVE (NEGATIVE); KETONES,URINE NEGATIVE (NEGATIVE); LEUKOCYTE ESTERASE ,URINE NEGATIVE (NEGATIVE); NITRITES,URINE NEGATIVE (NEGATIVE); PROTEIN,URINE 2+ (NEGATIVE); UROBILINOGEN,URINE NORMAL (NORMAL)
[2021-10-23 16:13] LABS: APPEARANCE,URINE CLEAR (CLEAR); BACTERIA,URINE TRACE /HPF (NEGATIVE); COLOR,URINE YELLOW (YELLOW); RBC,URINE NONE SEEN /HPF (0-3); SQUAMOUS EPITHELIAL CELL,UR RARE /HPF (NEGATIVE)
[2021-10-24] MEDS: SOLU-Medrol 125 MG VIAL IVP SCH ×3 (01:57→17:13)
[2021-10-24 05:07] LABS: BLOOD UREA NITROGEN 23 mg/dL (7-18); CALCIUM 8.1 mg/dL (8.5-10.1); CARBON DIOXIDE 22.3 mmol/L (21-32); CHLORIDE 109 mmol/L (98-107); COR NA(FOR HYPERGLY) 143 mmol/L (136-145); SODIUM 141 mmol/L (136-145); eGFR NON BLACK RACES > 60 (>60)
[2021-10-24 05:08] LABS: BASOPHILS % (AUTO) 0.2 % (0.2-1.0); EOSINOPHILS % (AUTO) 0.1 % (0.9-2.9); HEMATOCRIT 36.8 % (42.0-54.0); HEMOGLOBIN 12.6 g/dL (13.5-18.0); LYMPHOCYTES # (AUTO) 0.5 X10^3/uL (1.3-2.9); LYMPHOCYTES % (AUTO) 6.4 % (21.0-51.0); MEAN CORPUSCULAR HEMOGLOBIN 29.2 pg (27.0-34.0); MEAN CORPUSCULAR HGB CONC 34.4 g/dL (33.0-35.0); MEAN CORPUSCULAR VOLUME 84.8 fL (80.0-100.0); MEAN PLATELET VOLUME 8.1 fL (7.4-11.0); MONOCYTES # (AUTO) 0.1 x10^3/uL (0.3-0.8); MONOCYTES % (AUTO) 0.7 % (0.0-13.0); NEUTROPHILS # (AUTO) 7.3 x10^3/uL (2.2-4.8); NEUTROPHILS % (AUTO) 92.6 % (42.0-75.0); RED BLOOD COUNT 4.34 X10^6/uL (4.7-6.0); RED CELL DISTRIBUTION WIDTH 14.1 % (11.6-16.5); WHITE BLOOD COUNT 7.9 X10^3/uL (3.6-10.0)
[2021-10-24] MEDS: ZOSYN VIAL 4.5 GRAMS 4.5 G in NS 100 ML IV 100 ML IV SCH ×3 (05:36→21:52)
[2021-10-24] MEDS: NS 1,000 ML IV 1,000 ML IV SCH ×4 (05:36→13:05)
[2021-10-24 05:42] LABS: PLATELET MORPHOLOGY COMMENT NORMAL (NORMAL)
[2021-10-24] MEDS: BROVANA IN SCH ×2 (09:37→20:02)
[2021-10-24] MEDS: PULMICORT NEB TX 0.5 MG NEB SCH ×2 (09:37→20:02)
[2021-10-24] MEDS: LOVENOX INJ 40 MG SYR SC SCH (09:40)
[2021-10-24] MEDS: LIPITOR TAB 80 MG PO SCH (09:40)
[2021-10-24] MEDS: PLAVIX PO SCH (09:40)
[2021-10-24] MEDS: PROTONIX TAB 40 MG PO SCH (09:40)
[2021-10-24] MEDS: ZITHROMAX INJ 500 MG VIAL 500 MG in D5W 250 ML IV 250 ML IV SCH (09:41)
[2021-10-24] MEDS: VITAMIN A PO SCH (09:41)
[2021-10-24] MEDS: VITAMIN C PO SCH ×2 (09:41→10:45)
[2021-10-24] MEDS: VITAMIN D3 125 mcg (5,000 UNITS) PO SCH (09:41)
[2021-10-24] MEDS: ZINC SULFATE PO SCH (09:42)
[2021-10-24] MEDS: ZESTRIL TAB 5 MG PO SCH (09:42)
[2021-10-24] MEDS: REMDESIVIR 100 MG in NS 250 ML IV 250 ML IV SCH (10:13)
[2021-10-24] MEDS: NovoLIN R (or HumuLIN R) SC PRN ×2 (16:47→21:52)
--- NOTE | 2021-10-24 16:57 | PCM.PROG ---
Progress Note Progress Note for Day of Date of Exam: 10/24/21 Subjective Subjective: Patient seen at bedside, no events overnight. He remains on HHFNC FiO2 57% with sats > 90%. He states he feels slightly better. He did work with PT yesterday. He has some cough. Denies N/V/D. Denies fever or chills. Labs/imaging reviewed CTA 10/23/21: no PE noted, bilateral ground-glass opacities consistent with COVID. Plan: Continue IV Remdesivir, antibiotics and solumedrol. Continue vitamin support and hydration. Continue nebs and pulmicort. Advised patient to use IS as tolerated. PT/OT as tolerated. Discussed to sit up in the chair and move as much as tolerated. Continue COVID-19 protocol. Wean O2 as tolerated to keep sats > 88%, Monitor AM labs/imaging. Time spent for clinical assessment, reviewing labs/imaging, physical exam, documentation and decision making greater than 45 mins. Past Medical Family Social History Past Med/Fam/Surg Hx: No changes since H&P Allergies: Allergies No Known Drug Allergies Allergy (Verified 10/15/21 17:20) Review of Systems ROS: No change since H&P Vital Signs and I&O's Vital Signs: Temperature 97.8 F Pulse Rate [Radial] 73 Pulse Rate 44 Respiratory Rate 18 Blood Pressure [Left Arm] 113/74 Blood Pressure 112/57 O2 Sat by Pulse Oximetry 95 Intake and Output: Intake & Output 10/21/21 10/22/21 10/23/21 10/24/21 23:59 23:59 23:59 23:59 Intake Total 466 / 466 3164 / 3164 3550 / 3550 1315 / 1315 Output Total 625 / 625 1901 / 1901 1850 / 1850 700 / 700 Balance -159 / -159 1263 / 1263 1700 / 1700 615 / 615 Physical Exam Oriented: Normal Eyes: Normal Ear: Normal Nose: Normal Throat: Normal Respiratory: Generalized and Diminished Cardiovascular: Normal Auscultation: Bowel Sounds: Normal Tenderness: Normal Skin: Decreased [place] Musculoskeletal: Normal Psychiatric: Normal Mood Description: Calm Affect: Normal Speech Pattern: Clear and Appropriate Laboratory and Diagnostics Result Diagrams: 10/24/21 04:22 10/24/21 04:22 Labs: Laboratory WBC 7.9 X10^3/uL (3.6-10.0) 10/24/21 04:22 RBC 4.34 X10^6/uL (4.7-6.0) L 10/24/21 04:22 Hgb 12.6 g/dL (13.5-18.0) L 10/24/21 04:22 Hct 36.8 % (42.0-54.0) L 10/24/21 04:22 MCV 84.8 fL (80.0-100.0) 10/24/21 04:22 MCH 29.2 pg (27.0-34.0) 10/24/21 04:22 MCHC 34.4 g/dL (33.0-35.0) 10/24/21 04: RDW 14.1 % (11.6-16.5) 10/24/21 04:22 Plt Count 222 X10^3/uL (150.0-450.0) 10/24/21 04:22 Plt Count Comment Adequate (ADEQUATE) 10/24/21 04: MPV 8.1 fL (7.4-11.0) 10/24/21 04:22 Neut % (Auto) 92.6 % (42.0-75.0) H 10/24/21 04: Lymph % (Auto) 6.4 % (21.0-51.0) L 10/24/21 04:22 [place] % (Auto) 0.7 % (0.0-13.0) 10/24/21 04:22 Eos % (Auto) 0.1 % (0.9-2.9) L 10/24/21 04:22 Baso % (Auto) 0.2 % (0.2-1.0) 10/24/21 04:22 Neut # (Auto) 7.3 x10^3/uL (2.2-4.8) H 10/24/21 04:22 Lymph # (Auto) 0.5 X10^3/uL (1.3-2.9) L 10/24/21 04:22 [place] # (Auto) 0.1 x10^3/uL (0.3-0.8) L 10/24/21 04:22 Eos # (Auto) 0.0 x10^3/uL (0.0-0.2) 10/24/21 04:22 Baso # (Auto) 0.0 X10^3/uL (0.0-0.1) 10/24/21 04:22 Absolute Nucleated RBC 0.0 /100WBC 10/24/21 04:22 Total Counted 100 10/24/21 04:22 Neutrophils % (Manual) 88 % (39-76) H 10/24/21 04:22 Lymphocytes % (Manual) 7 % (13-43) L 10/24/21 04:22 Monocytes % (Manual) 5 % (4-9) 10/24/21 04:22 Plt Morphology Comment Normal (NORMAL) 10/24/21 04:22 RBC Morphology Normal (NORMAL) 10/24/21 04:22 Sample Site Lrad 10/21/21 16:09 ABG pH 7.470 (7.35-7.45) H 10/21/21 16:09 ABG pCO2 27.0 mmHg (35.0-45.0) L 10/21/21 16:09 ABG pO2 45.0 mmHg (80.0-100.0) L* 10/21/21 16:09 ABG HCO3 19.7 mmol/L (22-26) L 10/21/21 16:09 ABG O2 Saturation 84.0 % (90-100) L* 10/21/21 16:09 ABG Base Excess -2.7 mmol/L (-2.0-2.0) L 10/21/21 16:09 Jose G Test Pos 10/21/21 16:09 A-a Gradient 71.0 mmHg 10/21/21 16:09 FiO2 21.0 10/21/21 16:09 Blood Gas Comments Pt mariano well elj cdn 10/21/21 16:09 Sodium 141 mmol/L (136-145) 10/24/21 04:22 Corrected Sodium 143 mmol/L (136-145) 10/24/21 04:22 Potassium 4.8 mmol/L (3.5-5.1) 10/24/21 04:22 Chloride 109 mmol/L (98-107) H 10/24/21 04:22 Carbon Dioxide 22.3 mmol/L (21-32) 10/24/21 04:22 BUN 23 mg/dL (7-18) H 10/24/21 04:22 Creatinine 0.90 mg/dL (0.70-1.30) 10/24/21 04:22 Est GFR (MDRD) Af Amer > 60 (>60) 10/24/21 04:22 Est GFR (MDRD) Non-Af > 60 (>60) 10/24/21 04:22 Glucose 174 mg/dL (65-99) H 10/24/21 04:22 POC Glucose (mg/dL) 240 mg/dL (65-99) H 10/24/21 15:58 Calcium 8.1 mg/dL (8.5-10.1) L 10/24/21 04:22 Creatine Kinase 60 Units/L (39-308) 10/21/21 16:48 CK-MB (CK-2) 0.4 ng/mL (0-4.0) 10/21/21 16:48 CK/CKMB % Calc 0.7 % (<4) 10/21/21 16:48 Troponin I High Sens 6.3 ng/L (4.0-60.0) 10/21/21 16:48 C-Reactive Protein 6.70 mg/L (0-3.0) H 10/24/21 04:22 Specimen Type Clean catch urine 10/23/21 15:35 Urine Color Yellow (YELLOW) 10/23/21 15:35 Urine Appearance Clear (CLEAR) 10/23/21 15:35 Urine pH 5.0 (5.0 - 8.0) 10/23/21 15:35 Ur Specific [place] 1.025 (1.000-1.030) 10/23/21 15:35 Urine Protein 2+ (NEGATIVE) 10/23/21 15:35 Urine Glucose (UA) Negative (NEGATIVE) 10/23/21 15:35 Urine Ketones Negative (NEGATIVE) 10/23/21 15:35 Urine Occult Blood Negative (NEGATIVE) 10/23/21 15:35 Urine Nitrite Negative (NEGATIVE) 10/23/21 15:35 Urine Bilirubin Negative (NEGATIVE) 10/23/21 15:35 Urine Urobilinogen Normal (NORMAL) 10/23/21 15:35 Ur Leukocyte Esterase Negative (NEGATIVE) 10/23/21 15:35 Urine RBC None seen /HPF (0-3) 10/23/21 15:35 Urine WBC None seen /HPF (0-5) 10/23/21 15:35 Ur Squamous Epith Cells Rare /HPF (NEGATIVE) 10/23/21 15:35 Amorphous Sediment 1+ /HPF (NEGATIVE) 10/23/21 15:35 Urine Bacteria Trace /HPF (NEGATIVE) 10/23/21 15:35 Urine Mucus Few /HPF (NEGATIVE) 10/23/21 15:35 Ur Culture Indicated? No/not indicated 10/23/21 15:35 SARS-CoV-2 (PCR) Positive (NEGATIVE) A 10/21/21 16:30 Influenza Type A (PCR) Negative (NEGATIVE) 10/21/21 16:30 Influenza Type B (PCR) Negative (NEGATIVE) 10/21/21 16:30 RSV (PCR) Negative (NEGATIVE) 10/21/21 16:30 Plan (1) Pneumonia due to COVID-19 virus: Status: Acute (2) Acute respiratory failure with hypoxia: Status: Acute (3) Generalized weakness: Status: Acute (4) CAD (coronary artery disease): Status: Acute Qualifiers: Coronary Disease-Associated Artery/Lesion type: unspecified vessel or lesion type [place] vs. transplanted heart: [place] heart Associated angina: unspecified whether angina present Qualified Code(s): I25.10 - Atherosclerotic heart disease of [place] coronary artery without angina pectoris (5) HLD (hyperlipidemia): Status: Acute Qualifiers: Hyperlipidemia type: unspecified Qualified Code(s): E78.5 - Hyperlipidemia, unspecified
[2021-10-25] MEDS: SOLU-Medrol 125 MG VIAL IVP SCH ×3 (02:12→17:22)
[2021-10-25] MEDS: NS 1,000 ML IV 1,000 ML IV SCH (02:12)
[2021-10-25] MEDS: ZOSYN VIAL 4.5 GRAMS 4.5 G in NS 100 ML IV 100 ML IV SCH ×3 (05:20→21:52)
[2021-10-25 05:37] LABS: BASOPHILS % (AUTO) 0.1 % (0.2-1.0); EOSINOPHILS % (AUTO) 0.5 % (0.9-2.9); HEMATOCRIT 35.9 % (42.0-54.0); HEMOGLOBIN 12.6 g/dL (13.5-18.0); LYMPHOCYTES # (AUTO) 0.4 X10^3/uL (1.3-2.9); LYMPHOCYTES % (AUTO) 5.1 % (21.0-51.0); MEAN CORPUSCULAR HEMOGLOBIN 29.4 pg (27.0-34.0); MEAN CORPUSCULAR HGB CONC 35.1 g/dL (33.0-35.0); MEAN CORPUSCULAR VOLUME 83.7 fL (80.0-100.0); MEAN PLATELET VOLUME 8.2 fL (7.4-11.0); MONOCYTES # (AUTO) 0.2 x10^3/uL (0.3-0.8); MONOCYTES % (AUTO) 2.7 % (0.0-13.0); NEUTROPHILS # (AUTO) 7.5 x10^3/uL (2.2-4.8); NEUTROPHILS % (AUTO) 91.6 % (42.0-75.0); RED BLOOD COUNT 4.28 X10^6/uL (4.7-6.0); RED CELL DISTRIBUTION WIDTH 14.3 % (11.6-16.5); WHITE BLOOD COUNT 8.2 X10^3/uL (3.6-10.0)
[2021-10-25 05:39] LABS: BLOOD UREA NITROGEN 22 mg/dL (7-18); CALCIUM 7.6 mg/dL (8.5-10.1); CARBON DIOXIDE 22.1 mmol/L (21-32); CHLORIDE 110 mmol/L (98-107); COR NA(FOR HYPERGLY) 142 mmol/L (136-145); CREATININE 0.94 mg/dL (0.70-1.30); SODIUM 141 mmol/L (136-145); eGFR NON BLACK RACES > 60 (>60)
[2021-10-25 06:22] LABS: BAND NEUTROPHILS % 1 % (0-10); PLATELET MORPHOLOGY COMMENT NORMAL (NORMAL)
[2021-10-25] MEDS: VITAMIN C PO SCH (09:00)
[2021-10-25] MEDS: ZESTRIL TAB 5 MG PO SCH (09:00)
[2021-10-25] MEDS: ZINC SULFATE PO SCH (09:14)
[2021-10-25] MEDS: LOVENOX INJ 40 MG SYR SC SCH (09:14)
[2021-10-25] MEDS: ZITHROMAX INJ 500 MG VIAL 500 MG in D5W 250 ML IV 250 ML IV SCH (09:14)
[2021-10-25] MEDS: PROTONIX TAB 40 MG PO SCH (09:15)
[2021-10-25] MEDS: VITAMIN D3 125 mcg (5,000 UNITS) PO SCH (09:15)
[2021-10-25] MEDS: PLAVIX PO SCH (09:16)
[2021-10-25] MEDS: LIPITOR TAB 80 MG PO SCH (09:16)
[2021-10-25] MEDS: VITAMIN A PO SCH (09:17)
[2021-10-25] MEDS: PULMICORT NEB TX 0.5 MG NEB SCH ×2 (09:31→20:06)
[2021-10-25] MEDS: BROVANA IN SCH ×2 (09:31→20:06)
--- NOTE | 2021-10-25 09:44 | PCM.PROG ---
Progress Note Progress Note for Day of Date of Exam: 10/25/21 Subjective Subjective: Patient seen at bedside, no events overnight. He remains on HHFNC FiO2 57% with sats > 90%. He states he feels better. He did work with PT yesterday and sat on the recliner. He has some cough. Denies N/V/D. Denies fever or chills. Patient's HR does go down to the high 30s-40s while he is sleeping. No Sx. It comes back up when he is awake in the 60s. Denies chest pain. Patient states he had a sleep study years ago and does not have RAJIV. He had an echo done at the [facility] in [facility] 506 months ago. Labs/imaging reviewed CTA 10/23/21: no PE noted, bilateral ground-glass opacities consistent with COVID. Plan: Continue IV Remdesivir, antibiotics and solumedrol. Continue vitamin support and hydration. Continue nebs and pulmicort. Advised patient to use IS as tolerated. PT/OT as tolerated. Discussed to sit up in the chair and move as much as tolerated. Continue COVID-19 protocol. Wean O2 as tolerated to keep sats > 88%. Will order EKG. Obtain echo results from [facility]. Monitor AM labs/imaging. Time spent for clinical assessment, reviewing labs/imaging, physical exam, documentation and decision making greater than 45 mins. Past Medical Family Social History Past Med/Fam/Surg Hx: No changes since H&P Allergies: Allergies No Known Drug Allergies Allergy (Verified 10/15/21 17:20) Review of Systems ROS: No change since H&P Vital Signs and I&O's Vital Signs: Temperature 97.9 F Pulse Rate [Radial] 73 Pulse Rate 62 Respiratory Rate 15 Blood Pressure [Left Arm] 113/74 Blood Pressure 117/59 O2 Sat by Pulse Oximetry 92 Intake and Output: Intake & Output 10/22/21 10/23/21 10/24/21 10/25/21 23:59 23:59 23:59 23:59 Intake Total 3164 / 3164 3550 / 3550 2395 / 2395 710 / 710 Output Total 1901 / 1901 1850 / 1850 1475 / 1475 200 / 200 Balance 1263 / 1263 1700 / 1700 920 / 920 510 / 510 Physical Exam Oriented: Normal Eyes: Normal Ear: Normal Nose: Normal Throat: Normal Respiratory: Generalized and Diminished Cardiovascular: Normal Auscultation: Bowel Sounds: Normal Tenderness: Normal Skin: Decreased [place] Musculoskeletal: Normal Psychiatric: Normal Mood Description: Calm Affect: Normal Speech Pattern: Clear and Appropriate Laboratory and Diagnostics Result Diagrams: 10/25/21 05:00 10/25/21 05:00 Labs: Laboratory WBC 8.2 X10^3/uL (3.6-10.0) 10/25/21 05:00 RBC 4.28 X10^6/uL (4.7-6.0) L 10/25/21 05:00 Hgb 12.6 g/dL (13.5-18.0) L 10/25/21 05:00 Hct 35.9 % (42.0-54.0) L 10/25/21 05:00 MCV 83.7 fL (80.0-100.0) 10/25/21 05:00 MCH 29.4 pg (27.0-34.0) 10/25/21 05:00 MCHC 35.1 g/dL (33.0-35.0) H 10/25/21 05:00 RDW 14.3 % (11.6-16.5) 10/25/21 05:00 Plt Count 223 X10^3/uL (150.0-450.0) 10/25/21 05:00 Plt Count Comment Adequate (ADEQUATE) 10/25/21 05:00 MPV 8.2 fL (7.4-11.0) 10/25/21 05:00 Neut % (Auto) 91.6 % (42.0-75.0) H 10/25/21 05:00 Lymph % (Auto) 5.1 % (21.0-51.0) L 10/25/21 05:00 [place] % (Auto) 2.7 % (0.0-13.0) 10/25/21 05:00 Eos % (Auto) 0.5 % (0.9-2.9) L 10/25/21 05:00 Baso % (Auto) 0.1 % (0.2-1.0) L 10/25/21 05:00 Neut # (Auto) 7.5 x10^3/uL (2.2-4.8) H 10/25/21 05:00 Lymph # (Auto) 0.4 X10^3/uL (1.3-2.9) L 10/25/21 05:00 [place] # (Auto) 0.2 x10^3/uL (0.3-0.8) L 10/25/21 05:00 Eos # (Auto) 0.0 x10^3/uL (0.0-0.2) 10/25/21 05:00 Baso # (Auto) 0.0 X10^3/uL (0.0-0.1) 10/25/21 05:00 Absolute Nucleated RBC 0.1 /100WBC 10/25/21 05:00 Total Counted 100 10/25/21 05:00 Neutrophils % (Manual) 90 % (39-76) H 10/25/21 05:00 Band Neutrophils % 1 % (0-10) 10/25/21 05:00 Lymphocytes % (Manual) 4 % (13-43) L 10/25/21 05:00 Monocytes % (Manual) 5 % (4-9) 10/25/21 05:00 Plt Morphology Comment Normal (NORMAL) 10/25/21 05:00 RBC Morphology Normal (NORMAL) 10/25/21 05:00 Sample Site Lrad 10/21/21 16:09 ABG pH 7.470 (7.35-7.45) H 10/21/21 16:09 ABG pCO2 27.0 mmHg (35.0-45.0) L 10/21/21 16:09 ABG pO2 45.0 mmHg (80.0-100.0) L* 10/21/21 16:09 ABG HCO3 19.7 mmol/L (22-26) L 10/21/21 16:09 ABG O2 Saturation 84.0 % (90-100) L* 10/21/21 16:09 ABG Base Excess -2.7 mmol/L (-2.0-2.0) L 10/21/21 16:09 Jose G Test Pos 10/21/21 16:09 A-a Gradient 71.0 mmHg 10/21/21 16:09 FiO2 21.0 10/21/21 16:09 Blood Gas Comments Pt mariano well elj cdn 10/21/21 16:09 Sodium 141 mmol/L (136-145) 10/25/21 05:00 Corrected Sodium 142 mmol/L (136-145) 10/25/21 05:00 Potassium 4.8 mmol/L (3.5-5.1) 10/25/21 05:00 Chloride 110 mmol/L (98-107) H 10/25/21 05:00 Carbon Dioxide 22.1 mmol/L (21-32) 10/25/21 05:00 BUN 22 mg/dL (7-18) H 10/25/21 05:00 Creatinine 0.94 mg/dL (0.70-1.30) 10/25/21 05:00 Est GFR (MDRD) Af Amer > 60 (>60) 10/25/21 05:00 Est GFR (MDRD) Non-Af > 60 (>60) 10/25/21 05:00 Glucose 153 mg/dL (65-99) H 10/25/21 05:00 POC Glucose (mg/dL) 237 mg/dL (65-99) H 10/24/21 19:14 Calcium 7.6 mg/dL (8.5-10.1) L 10/25/21 05:00 Creatine Kinase 60 Units/L (39-308) 10/21/21 16:48 CK-MB (CK-2) 0.4 ng/mL (0-4.0) 10/21/21 16:48 CK/CKMB % Calc 0.7 % (<4) 10/21/21 16:48 Troponin I High Sens 6.3 ng/L (4.0-60.0) 10/21/21 16:48 C-Reactive Protein 6.70 mg/L (0-3.0) H 10/24/21 04:22 Specimen Type Clean catch urine 10/23/21 15:35 Urine Color Yellow (YELLOW) 10/23/21 15:35 Urine Appearance Clear (CLEAR) 10/23/21 15:35 Urine pH 5.0 (5.0 - 8.0) 10/23/21 15:35 Ur Specific [place] 1.025 (1.000-1.030) 10/23/21 15:35 Urine Protein 2+ (NEGATIVE) 10/23/21 15:35 Urine Glucose (UA) Negative (NEGATIVE) 10/23/21 15:35 Urine Ketones Negative (NEGATIVE) 10/23/21 15:35 Urine Occult Blood Negative (NEGATIVE) 10/23/21 15:35 Urine Nitrite Negative (NEGATIVE) 10/23/21 15:35 Urine Bilirubin Negative (NEGATIVE) 10/23/21 15:35 Urine Urobilinogen Normal (NORMAL) 10/23/21 15:35 Ur Leukocyte Esterase Negative (NEGATIVE) 10/23/21 15:35 Urine RBC None seen /HPF (0-3) 10/23/21 15:35 Urine WBC None seen /HPF (0-5) 10/23/21 15:35 Ur Squamous Epith Cells Rare /HPF (NEGATIVE) 10/23/21 15:35 Amorphous Sediment 1+ /HPF (NEGATIVE) 10/23/21 15:35 Urine Bacteria Trace /HPF (NEGATIVE) 10/23/21 15:35 Urine Mucus Few /HPF (NEGATIVE) 10/23/21 15:35 Ur Culture Indicated? No/not indicated 10/23/21 15:35 SARS-CoV-2 (PCR) Positive (NEGATIVE) A 10/21/21 16:30 Influenza Type A (PCR) Negative (NEGATIVE) 10/21/21 16:30 Influenza Type B (PCR) Negative (NEGATIVE) 10/21/21 16:30 RSV (PCR) Negative (NEGATIVE) 10/21/21 16:30 Plan (1) Pneumonia due to COVID-19 virus: Status: Acute (2) Acute respiratory failure with hypoxia: Status: Acute (3) Generalized weakness: Status: Acute (4) CAD (coronary artery disease): Status: Acute Qualifiers: Associated angina: unspecified whether angina present Coronary Disease- Associated Artery/Lesion type: unspecified vessel or lesion type [place] vs. transplanted heart: [place] heart Qualified Code(s): I25.10 - Atherosclerotic heart disease of [place] coronary artery without angina pectoris (5) HLD (hyperlipidemia): Status: Acute Qualifiers: Hyperlipidemia type: unspecified Qualified Code(s): E78.5 - Hyperlipidemia, unspecified
[2021-10-25] MEDS: NovoLIN R (or HumuLIN R) SC PRN (22:06)
[2021-10-26] MEDS: SOLU-Medrol 125 MG VIAL IVP SCH ×4 (02:05→20:39)
[2021-10-26 05:28] LABS: BLOOD UREA NITROGEN 22 mg/dL (7-18); CALCIUM 7.9 mg/dL (8.5-10.1); CHLORIDE 109 mmol/L (98-107); COR NA(FOR HYPERGLY) 142 mmol/L (136-145); CREATININE 0.85 mg/dL (0.70-1.30); SODIUM 141 mmol/L (136-145); eGFR NON BLACK RACES > 60 (>60)
[2021-10-26 05:31] LABS: BASOPHILS % (AUTO) 0.1 % (0.2-1.0); HEMATOCRIT 36.2 % (42.0-54.0); HEMOGLOBIN 12.8 g/dL (13.5-18.0); LYMPHOCYTES # (AUTO) 0.4 X10^3/uL (1.3-2.9); MEAN CORPUSCULAR HEMOGLOBIN 29.6 pg (27.0-34.0); MEAN CORPUSCULAR HGB CONC 35.3 g/dL (33.0-35.0); MEAN CORPUSCULAR VOLUME 83.9 fL (80.0-100.0); MEAN PLATELET VOLUME 8.1 fL (7.4-11.0); MONOCYTES # (AUTO) 0.4 x10^3/uL (0.3-0.8); MONOCYTES % (AUTO) 5.4 % (0.0-13.0); NEUTROPHILS # (AUTO) 5.8 x10^3/uL (2.2-4.8); NEUTROPHILS % (AUTO) 88.5 % (42.0-75.0); RED BLOOD COUNT 4.32 X10^6/uL (4.7-6.0); RED CELL DISTRIBUTION WIDTH 14.3 % (11.6-16.5); WHITE BLOOD COUNT 6.6 X10^3/uL (3.6-10.0)
[2021-10-26] MEDS: ZOSYN VIAL 4.5 GRAMS 4.5 G in NS 100 ML IV 100 ML IV SCH ×3 (06:17→21:00)
[2021-10-26] MEDS: NovoLIN R (or HumuLIN R) SC PRN (06:35)
[2021-10-26] MEDS: REMDESIVIR 100 MG in NS 250 ML IV 250 ML IV SCH ×2 (07:22→18:42)
[2021-10-26] MEDS: BROVANA IN SCH ×2 (08:50→21:00)
[2021-10-26] MEDS: ZITHROMAX INJ 500 MG VIAL 500 MG in D5W 250 ML IV 250 ML IV SCH (08:50)
[2021-10-26] MEDS: NS 1,000 ML IV 1,000 ML IV SCH ×2 (08:50→18:41)
[2021-10-26] MEDS: PULMICORT NEB TX 0.5 MG NEB SCH ×2 (08:50→21:00)
[2021-10-26] MEDS: LOVENOX INJ 40 MG SYR SC SCH (08:50)
[2021-10-26] MEDS: PROTONIX TAB 40 MG PO SCH (08:51)
[2021-10-26] MEDS: VITAMIN D3 125 mcg (5,000 UNITS) PO SCH (08:51)
[2021-10-26] MEDS: ZINC SULFATE PO SCH (08:51)
[2021-10-26] MEDS: PLAVIX PO SCH (08:51)
[2021-10-26] MEDS: LIPITOR TAB 80 MG PO SCH (08:51)
[2021-10-26] MEDS: ZESTRIL TAB 5 MG PO SCH (08:51)
[2021-10-26] MEDS: VITAMIN C PO SCH (09:00)
[2021-10-26] MEDS: VITAMIN A PO SCH (09:00)
--- NOTE | 2021-10-26 11:57 | PCM.PROG ---
Progress Note Progress Note for Day of Date of Exam: 10/26/21 Subjective Subjective: Patient seen at bedside, no events overnight. He remains on HHFNC FiO2 43% with sats > 90%. He states he feels better. He did work with PT yesterday and sat on the recliner. Denies N/V/D. Denies fever or chills. Labs/imaging reviewed CTA 10/23/21: no PE noted, bilateral ground-glass opacities consistent with COVID. Plan: Continue IV Remdesivir, antibiotics and solumedrol. Continue vitamin support and hydration. Continue IS, nebs and pulmicort. Advised patient to use IS as tolerated. PT/OT as tolerated. Discussed to sit up in the chair and move as much as tolerated. Continue COVID-19 protocol. Wean O2 as tolerated to keep sats > 88%, transition to nasal cannula as tolerated. Monitor AM labs/imaging. Time spent for clinical assessment, reviewing labs/imaging, physical exam, documentation and decision making greater than 45 mins. Past Medical Family Social History Past Med/Fam/Surg Hx: No changes since H&P Allergies: Allergies No Known Drug Allergies Allergy (Verified 10/15/21 17:20) Review of Systems ROS: No change since H&P Vital Signs and I&O's Vital Signs: Temperature 97.9 F Pulse Rate [Radial] 73 Pulse Rate 55 Respiratory Rate 18 Blood Pressure [Left Arm] 113/74 Blood Pressure 98/59 O2 Sat by Pulse Oximetry 96 Intake and Output: Intake & Output 10/23/21 10/24/21 10/25/21 10/26/21 23:59 23:59 23:59 23:59 Intake Total 3550 / 3550 2395 / 2395 2040 / 2040 1326 / 1326 Output Total 1850 / 1850 1475 / 1475 200 / 200 Balance 1700 / 1700 920 / 920 1840 / 1840 1326 / 1326 Physical Exam Oriented: Normal Eyes: Normal Ear: Normal Nose: Normal Throat: Normal Respiratory: Generalized and Diminished Cardiovascular: Normal Auscultation: Bowel Sounds: Normal Tenderness: Normal Skin: Normal Musculoskeletal: Normal Psychiatric: Normal Mood Description: Calm Affect: Normal Speech Pattern: Clear Laboratory and Diagnostics Result Diagrams: 10/26/21 04:41 10/26/21 04:41 Labs: Laboratory WBC 6.6 X10^3/uL (3.6-10.0) 10/26/21 04:41 RBC 4.32 X10^6/uL (4.7-6.0) L 10/26/21 04:41 Hgb 12.8 g/dL (13.5-18.0) L 10/26/21 04:41 Hct 36.2 % (42.0-54.0) L 10/26/21 04:41 MCV 83.9 fL (80.0-100.0) 10/26/21 04:41 MCH 29.6 pg (27.0-34.0) 10/26/21 04:41 MCHC 35.3 g/dL (33.0-35.0) H 10/26/21 04:41 RDW 14.3 % (11.6-16.5) 10/26/21 04:41 Plt Count 225 X10^3/uL (150.0-450.0) 10/26/21 04:41 Plt Count Comment Adequate (ADEQUATE) 10/25/21 05:00 MPV 8.1 fL (7.4-11.0) 10/26/21 04:41 Neut % (Auto) 88.5 % (42.0-75.0) H 10/26/21 04:41 Lymph % (Auto) 6.0 % (21.0-51.0) L 10/26/21 04:41 [place] % (Auto) 5.4 % (0.0-13.0) 10/26/21 04:41 Eos % (Auto) 0.0 % (0.9-2.9) L 10/26/21 04:41 Baso % (Auto) 0.1 % (0.2-1.0) L 10/26/21 04:41 Neut # (Auto) 5.8 x10^3/uL (2.2-4.8) H 10/26/21 04:41 Lymph # (Auto) 0.4 X10^3/uL (1.3-2.9) L 10/26/21 04:41 [place] # (Auto) 0.4 x10^3/uL (0.3-0.8) 10/26/21 04:41 Eos # (Auto) 0.0 x10^3/uL (0.0-0.2) 10/26/21 04:41 Baso # (Auto) 0.0 X10^3/uL (0.0-0.1) 10/26/21 04:41 Absolute Nucleated RBC 0.0 /100WBC 10/26/21 04:41 Total Counted 100 10/25/21 05:00 Neutrophils % (Manual) 90 % (39-76) H 10/25/21 05:00 Band Neutrophils % 1 % (0-10) 10/25/21 05:00 Lymphocytes % (Manual) 4 % (13-43) L 10/25/21 05:00 Monocytes % (Manual) 5 % (4-9) 10/25/21 05:00 Plt Morphology Comment Normal (NORMAL) 10/25/21 05:00 RBC Morphology Normal (NORMAL) 10/25/21 05:00 Sample Site Lrad 10/21/21 16:09 ABG pH 7.470 (7.35-7.45) H 10/21/21 16:09 ABG pCO2 27.0 mmHg (35.0-45.0) L 10/21/21 16:09 ABG pO2 45.0 mmHg (80.0-100.0) L* 10/21/21 16:09 ABG HCO3 19.7 mmol/L (22-26) L 10/21/21 16:09 ABG O2 Saturation 84.0 % (90-100) L* 10/21/21 16:09 ABG Base Excess -2.7 mmol/L (-2.0-2.0) L 10/21/21 16:09 Jose G Test Pos 10/21/21 16:09 A-a Gradient 71.0 mmHg 10/21/21 16:09 FiO2 21.0 10/21/21 16:09 Blood Gas Comments Pt mariano well elj cdn 10/21/21 16:09 Sodium 141 mmol/L (136-145) 10/26/21 04:41 Corrected Sodium 142 mmol/L (136-145) 10/26/21 04:41 Potassium 4.7 mmol/L (3.5-5.1) 10/26/21 04:41 Chloride 109 mmol/L (98-107) H 10/26/21 04:41 Carbon Dioxide 24.0 mmol/L (21-32) 10/26/21 04:41 BUN 22 mg/dL (7-18) H 10/26/21 04:41 Creatinine 0.85 mg/dL (0.70-1.30) 10/26/21 04:41 Est GFR (MDRD) Af Amer > 60 (>60) 10/26/21 04:41 Est GFR (MDRD) Non-Af > 60 (>60) 10/26/21 04:41 Glucose 150 mg/dL (65-99) H 10/26/21 04:41 POC Glucose (mg/dL) 185 mg/dL (65-99) H 10/26/21 11:37 Calcium 7.9 mg/dL (8.5-10.1) L 10/26/21 04:41 Creatine Kinase 60 Units/L (39-308) 10/21/21 16:48 CK-MB (CK-2) 0.4 ng/mL (0-4.0) 10/21/21 16:48 CK/CKMB % Calc 0.7 % (<4) 10/21/21 16:48 Troponin I High Sens 6.3 ng/L (4.0-60.0) 10/21/21 16:48 C-Reactive Protein 1.30 mg/L (0-3.0) 10/26/21 04:41 Specimen Type Clean catch urine 10/23/21 15:35 Urine Color Yellow (YELLOW) 10/23/21 15:35 Urine Appearance Clear (CLEAR) 10/23/21 15:35 Urine pH 5.0 (5.0 - 8.0) 10/23/21 15:35 Ur Specific [place] 1.025 (1.000-1.030) 10/23/21 15:35 Urine Protein 2+ (NEGATIVE) 10/23/21 15:35 Urine Glucose (UA) Negative (NEGATIVE) 10/23/21 15:35 Urine Ketones Negative (NEGATIVE) 10/23/21 15:35 Urine Occult Blood Negative (NEGATIVE) 10/23/21 15:35 Urine Nitrite Negative (NEGATIVE) 10/23/21 15:35 Urine Bilirubin Negative (NEGATIVE) 10/23/21 15:35 Urine Urobilinogen Normal (NORMAL) 10/23/21 15:35 Ur Leukocyte Esterase Negative (NEGATIVE) 10/23/21 15:35 Urine RBC None seen /HPF (0-3) 10/23/21 15:35 Urine WBC None seen /HPF (0-5) 10/23/21 15:35 Ur Squamous Epith Cells Rare /HPF (NEGATIVE) 10/23/21 15:35 Amorphous Sediment 1+ /HPF (NEGATIVE) 10/23/21 15:35 Urine Bacteria Trace /HPF (NEGATIVE) 10/23/21 15:35 Urine Mucus Few /HPF (NEGATIVE) 10/23/21 15:35 Ur Culture Indicated? No/not indicated 10/23/21 15:35 SARS-CoV-2 (PCR) Positive (NEGATIVE) A 10/21/21 16:30 Influenza Type A (PCR) Negative (NEGATIVE) 10/21/21 16:30 Influenza Type B (PCR) Negative (NEGATIVE) 10/21/21 16:30 RSV (PCR) Negative (NEGATIVE) 10/21/21 16:30 Plan (1) Pneumonia due to COVID-19 virus: Status: Acute (2) Acute respiratory failure with hypoxia: Status: Acute (3) Generalized weakness: Status: Acute (4) CAD (coronary artery disease): Status: Acute Qualifiers: Associated angina: unspecified whether angina present Coronary Disease- Associated Artery/Lesion type: unspecified vessel or lesion type [place] vs. transplanted heart: [place] heart Qualified Code(s): I25.10 - Atherosclerotic heart disease of [place] coronary artery without angina pectoris (5) HLD (hyperlipidemia): Status: Acute Qualifiers: Hyperlipidemia type: unspecified Qualified Code(s): E78.5 - Hyperlipidemia, unspecified
[2021-10-27] MEDS: SOLU-Medrol 125 MG VIAL IVP SCH ×3 (01:10→18:27)
[2021-10-27] MEDS: ZOSYN VIAL 4.5 GRAMS 4.5 G in NS 100 ML IV 100 ML IV SCH ×3 (05:21→21:06)
[2021-10-27 05:36] LABS: BLOOD UREA NITROGEN 21 mg/dL (7-18); CARBON DIOXIDE 22.3 mmol/L (21-32); CHLORIDE 105 mmol/L (98-107); COR NA(FOR HYPERGLY) 129 mmol/L (136-145); CREATININE 0.89 mg/dL (0.70-1.30); SODIUM 127 mmol/L (136-145); eGFR NON BLACK RACES > 60 (>60)
[2021-10-27 05:39] LABS: BASOPHILS % (AUTO) 0.1 % (0.2-1.0); HEMATOCRIT 36.7 % (42.0-54.0); LYMPHOCYTES # (AUTO) 0.4 X10^3/uL (1.3-2.9); LYMPHOCYTES % (AUTO) 7.2 % (21.0-51.0); MEAN CORPUSCULAR HEMOGLOBIN 29.8 pg (27.0-34.0); MEAN CORPUSCULAR HGB CONC 35.4 g/dL (33.0-35.0); MEAN CORPUSCULAR VOLUME 84.1 fL (80.0-100.0); MEAN PLATELET VOLUME 8.2 fL (7.4-11.0); MONOCYTES # (AUTO) 0.1 x10^3/uL (0.3-0.8); MONOCYTES % (AUTO) 2.4 % (0.0-13.0); NEUTROPHILS # (AUTO) 4.5 x10^3/uL (2.2-4.8); NEUTROPHILS % (AUTO) 90.3 % (42.0-75.0); RED BLOOD COUNT 4.36 X10^6/uL (4.7-6.0); RED CELL DISTRIBUTION WIDTH 14.4 % (11.6-16.5)
--- NOTE | 2021-10-27 06:14 | RAD ---
HISTORYSOBSTUDYCHEST, 1 VIEWCOMPARISONCTA chest from 10/23/2021. Chest radiograph from 10/15/2021.TECHNIQUEAP view of the chestFINDINGSCardiac and mediastinal contours are within normal limits. There are bilateral scattered hazy and interstitial pulmonary opacities worse from prior radiograph. No definite pleural effusion or pneumothorax.IMPRESSIONWorse hazy and interstitial pulmonary opacities from prior radiograph suspicious for atypical pneumonia.Electronically signed by: Param Mattson (Oct 27, 2021 06:13:36)
[2021-10-27 06:25] LABS: PLATELET MORPHOLOGY COMMENT NORMAL (NORMAL)
[2021-10-27] MEDS: BROVANA IN SCH ×2 (08:40→21:16)
[2021-10-27] MEDS: PULMICORT NEB TX 0.5 MG NEB SCH ×2 (08:40→21:16)
[2021-10-27 08:57] LABS: ABG ALLEN TEST POS; ABG BASE EXCESS -1.7 mmol/L (-2.0-2.0); ABG HCO3 19.9 mmol/L (22-26)
[2021-10-27] MEDS: LOVENOX INJ 40 MG SYR SC SCH (09:56)
[2021-10-27] MEDS: LIPITOR TAB 80 MG PO SCH (09:56)
[2021-10-27] MEDS: PROTONIX TAB 40 MG PO SCH (09:57)
[2021-10-27] MEDS: VITAMIN C PO SCH (09:57)
[2021-10-27] MEDS: PLAVIX PO SCH (09:57)
[2021-10-27] MEDS: VITAMIN A PO SCH (09:57)
[2021-10-27] MEDS: VITAMIN D3 125 mcg (5,000 UNITS) PO SCH (09:58)
[2021-10-27] MEDS: ZITHROMAX INJ 500 MG VIAL 500 MG in D5W 250 ML IV 250 ML IV SCH (09:58)
[2021-10-27] MEDS: ZESTRIL TAB 5 MG PO SCH (09:58)
[2021-10-27] MEDS: ZINC SULFATE PO SCH (09:58)
--- NOTE | 2021-10-27 12:34 | PCM.PROG ---
Progress Note - Progress Note for Day of Date of Exam: 10/27/21 - Subjective Subjective: IS A 66 YEAR OLD PATIENT OF . HE WAS ADMITTED FOR TREATMENT OF PNEUMONIA DUE TO COVID-19, ACUTE RESPIRATORY FAILURE WITH HYPOXIA, AND GENERALIZED WEAKNESS. PMH OF CAD, HTN, AND HLD. TODAY, HE IS ALERT AND ORIENTED, LYING IN BED ON MORNING ROUNDS. HE CONTINUES TO HAVE COMPLAINTS OF SOB, COUGH AT TIMES, AND WEAKNESS. HE DOES REPORT SLIGHT IMPROVEMENT IN SYMPTOMS SINCE YESTERDAY. HE WAS ON [facility] FI02 43% YESTERDAY. HE IS NOW ON OXYGEN VIA NC AT 4 LPM. IT APPEARS THAT SATURATIONS HAVE REMAINED >90% THIS MORNING. ON EXAMINATION, HEART IS REGULAR IN RATE AND RHYTHM. BILATERAL LUNGS NOTED WITH DIMINISHED LUNG SOUNDS THROUGHOUT. ABDOMEN IS ROUND, SOFT, AND NON-TENDER WITH NORMAL BOWEL SOUNDS NOTED IN ALL QUADRANTS. HIS VITALS THIS MORNING ARE: 98.0-64-15-93%-147/63. LABS WERE OBTAINED. WBC 5.0, HGB 13.0, HCT 36.7, SODIUM 127, POTASSIUM 4.2, BUN 21, CREATININE 0.89, GLUCOSE 185, CALCIUM 8.0, CRP 0.90, BNP 120. CHEST XRAY OBTAINED AND REVEALED: Worse hazy and interstitial pulmonary opacities from prior radiograph suspicious for atypical pneumonia. WE WILL CONTINUE WITH IV FLUIDS, IV ANTIBIOTICS, IV SOLU-MEDROL, NEBULIZER TREATMENTS, OTBS ACHS, SSI, AND IMMUNE SUPPLEMENTS. HE IS ENCOURAGED TO GET OUT OF BED. WE WILL DECREASE OXYGEN PATIENT TOLERATES. OTHERWISE, WE PLAN TO FOLLOW UP WITH AM LABS AND CHEST XRAY AND CONTINUE TO MONITOR. TIME SPENT ON CLINICAL ASSESSMENT, REVIEWING LABS AND IMAGING, DECISION MAKING, AND DOCUMENTATION GREATER THAN 45 MINUTES. - Past Medical Family Social History Past Med/Fam/Surg Hx: No changes since H&P Allergies: Allergies No Known Drug Allergies Allergy (Verified 10/15/21 17:20) - Review of Systems ROS: No change since H&P - Vital Signs and I&O's Vital Signs: Temperature 98.0 F Pulse Rate [Radial] 73 Pulse Rate 92 Respiratory Rate 23 Blood Pressure [Left Arm] 113/74 Blood Pressure 108/59 O2 Sat by Pulse Oximetry 91 Intake and Output: Intake & Output 10/25/21 10/26/21 10/27/21 10/28/21 11:59 11:59 11:59 11:59 Intake Total 2645 / 2645 2656 / 2656 3341 / 3341 Output Total 1675 / 1675 200 / 200 Balance 970 / 970 2656 / 2656 3141 / 3141 - Physical Exam Oriented: Normal Eyes: Normal Ear: Normal Nose: Normal Throat: Normal Respiratory: Generalized, Diminished Cardiovascular: Normal Auscultation: Bowel Sounds: Normal Palpation: Normal Tenderness: Normal Skin: Normal Musculoskeletal: Normal Psychiatric: Normal Mood Description: Calm Affect: Normal Speech Pattern: Clear, Appropriate - Laboratory and Diagnostics Result Diagrams: 10/27/21 05:04 10/27/21 05:04 Labs: Laboratory WBC 5.0 X10^3/uL (3.6-10.0) 10/27/21 05:04 RBC 4.36 X10^6/uL (4.7-6.0) L 10/27/21 05:04 Hgb 13.0 g/dL (13.5-18.0) L 10/27/21 05:04 Hct 36.7 % (42.0-54.0) L 10/27/21 05:04 MCV 84.1 fL (80.0-100.0) 10/27/21 05:04 MCH 29.8 pg (27.0-34.0) 10/27/21 05:04 MCHC 35.4 g/dL (33.0-35.0) H 10/27/21 05:04 RDW 14.4 % (11.6-16.5) 10/27/21 05:04 Plt Count 208 X10^3/uL (150.0-450.0) 10/27/21 05:04 Plt Count Comment Adequate (ADEQUATE) 10/27/21 05:04 MPV 8.2 fL (7.4-11.0) 10/27/21 05:04 Neut % (Auto) 90.3 % (42.0-75.0) H 10/27/21 05:04 Lymph % (Auto) 7.2 % (21.0-51.0) L 10/27/21 05:04 [place] % (Auto) 2.4 % (0.0-13.0) 10/27/21 05:04 Eos % (Auto) 0.0 % (0.9-2.9) L 10/27/21 05:04 Baso % (Auto) 0.1 % (0.2-1.0) L 10/27/21 05:04 Neut # (Auto) 4.5 x10^3/uL (2.2-4.8) 10/27/21 05:04 Lymph # (Auto) 0.4 X10^3/uL (1.3-2.9) L 10/27/21 05:04 [place] # (Auto) 0.1 x10^3/uL (0.3-0.8) L 10/27/21 05:04 Eos # (Auto) 0.0 x10^3/uL (0.0-0.2) 10/27/21 05:04 Baso # (Auto) 0.0 X10^3/uL (0.0-0.1) 10/27/21 05:04 Absolute Nucleated RBC 0.1 /100WBC 10/27/21 05:04 Total Counted 100 10/27/21 05:04 Neutrophils % (Manual) 91 % (39-76) H 10/27/21 05:04 Band Neutrophils % 1 % (0-10) 10/25/21 05:00 Lymphocytes % (Manual) 7 % (13-43) L 10/27/21 05:04 Monocytes % (Manual) 2 % (4-9) L 10/27/21 05:04 Plt Morphology Comment Normal (NORMAL) 10/27/21 05:04 RBC Morphology Normal (NORMAL) 10/27/21 05:04 Sample Site Rrad 10/27/21 08:50 ABG pH 7.510 (7.35-7.45) H 10/27/21 08:50 ABG pCO2 25.0 mmHg (35.0-45.0) L 10/27/21 08:50 ABG pO2 93.0 mmHg (80.0-100.0) 10/27/21 08:50 ABG HCO3 19.9 mmol/L (22-26) L 10/27/21 08:50 ABG O2 Saturation 98.0 % (90-100) 10/27/21 08:50 ABG Base Excess -1.7 mmol/L (-2.0-2.0) 10/27/21 08:50 Jose G Test Pos 10/27/21 08:50 A-a Gradient 132.0 mmHg 10/27/21 08:50 FiO2 36.0 10/27/21 08:50 Blood Gas Comments Pt mariano well 10/27/21 08:50 Sodium 127 mmol/L (136-145) L 10/27/21 05:04 Corrected Sodium 129 mmol/L (136-145) L 10/27/21 05:04 Potassium 4.2 mmol/L (3.5-5.1) 10/27/21 05:04 Chloride 105 mmol/L (98-107) 10/27/21 05:04 Carbon Dioxide 22.3 mmol/L (21-32) 10/27/21 05:04 BUN 21 mg/dL (7-18) H 10/27/21 05:04 Creatinine 0.89 mg/dL (0.70-1.30) 10/27/21 05:04 Est GFR (MDRD) Af Amer > 60 (>60) 10/27/21 05:04 Est GFR (MDRD) Non-Af > 60 (>60) 10/27/21 05:04 Glucose 185 mg/dL (65-99) H 10/27/21 05:04 POC Glucose (mg/dL) 177 mg/dL (65-99) H 10/27/21 05:03 Calcium 8.0 mg/dL (8.5-10.1) L 10/27/21 05:04 Creatine Kinase 60 Units/L (39-308) 10/21/21 16:48 CK-MB (CK-2) 0.4 ng/mL (0-4.0) 10/21/21 16:48 CK/CKMB % Calc 0.7 % (<4) 10/21/21 16:48 Troponin I High Sens 6.3 ng/L (4.0-60.0) 10/21/21 16:48 C-Reactive Protein 0.90 mg/L (0-3.0) 10/27/21 05:04 B-Natriuretic Peptide 120 pg/mL (0-79) H 10/27/21 05:04 Specimen Type Clean catch urine 10/23/21 15:35 Urine Color Yellow (YELLOW) 10/23/21 15:35 Urine Appearance Clear (CLEAR) 10/23/21 15:35 Urine pH 5.0 (5.0 - 8.0) 10/23/21 15:35 Ur Specific [place] 1.025 (1.000-1.030) 10/23/21 15:35 Urine Protein 2+ (NEGATIVE) 10/23/21 15:35 Urine Glucose (UA) Negative (NEGATIVE) 10/23/21 15:35 Urine Ketones Negative (NEGATIVE) 10/23/21 15:35 Urine Occult Blood Negative (NEGATIVE) 10/23/21 15:35 Urine Nitrite Negative (NEGATIVE) 10/23/21 15:35 Urine Bilirubin Negative (NEGATIVE) 10/23/21 15:35 Urine Urobilinogen Normal (NORMAL) 10/23/21 15:35 Ur Leukocyte Esterase Negative (NEGATIVE) 10/23/21 15:35 Urine RBC None seen /HPF (0-3) 10/23/21 15:35 Urine WBC None seen /HPF (0-5) 10/23/21 15:35 Ur Squamous Epith Cells Rare /HPF (NEGATIVE) 10/23/21 15:35 Amorphous Sediment 1+ /HPF (NEGATIVE) 10/23/21 15:35 Urine Bacteria Trace /HPF (NEGATIVE) 10/23/21 15:35 Urine Mucus Few /HPF (NEGATIVE) 10/23/21 15:35 Ur Culture Indicated? No/not indicated 10/23/21 15:35 SARS-CoV-2 (PCR) Positive (NEGATIVE) A 10/21/21 16:30 Influenza Type A (PCR) Negative (NEGATIVE) 10/21/21 16:30 Influenza Type B (PCR) Negative (NEGATIVE) 10/21/21 16:30 RSV (PCR) Negative (NEGATIVE) 10/21/21 16:30 - Plan (1) Pneumonia due to COVID-19 virus Status: Acute (2) Acute respiratory failure with hypoxia Status: Acute (3) Generalized weakness Status: Acute (4) CAD (coronary artery disease) Status: Chronic Qualifiers: Coronary Disease-Associated Artery/Lesion type: [place] artery [place] vs. transplanted heart: [place] heart Associated angina: unspecified whether angina present Qualified Code(s): I25.10 - Atherosclerotic heart disease of [place] coronary artery without angina pectoris (5) Hypertension Status: Acute Qualifiers: Hypertension type: primary hypertension Qualified Code(s): I10 - Essential (primary) hypertension (6) HLD (hyperlipidemia) Status: Chronic Qualifiers: Hyperlipidemia type: mixed hyperlipidemia Qualified Code(s): E78.2 - Mixed hyperlipidemia
[2021-10-27] MEDS: NovoLIN R (or HumuLIN R) SC PRN (21:04)
[2021-10-28] MEDS: SOLU-Medrol 125 MG VIAL IVP SCH (01:00)
[2021-10-28] MEDS: ZOSYN VIAL 4.5 GRAMS 4.5 G in NS 100 ML IV 100 ML IV SCH (05:28)
[2021-10-28 06:13] LABS: BASOPHILS % (AUTO) 0.1 % (0.2-1.0); HEMATOCRIT 37.3 % (42.0-54.0); HEMOGLOBIN 12.9 g/dL (13.5-18.0); LYMPHOCYTES # (AUTO) 0.4 X10^3/uL (1.3-2.9); MEAN CORPUSCULAR HEMOGLOBIN 29.2 pg (27.0-34.0); MEAN CORPUSCULAR HGB CONC 34.5 g/dL (33.0-35.0); MEAN CORPUSCULAR VOLUME 84.7 fL (80.0-100.0); MEAN PLATELET VOLUME 8.3 fL (7.4-11.0); MONOCYTES # (AUTO) 0.3 x10^3/uL (0.3-0.8); MONOCYTES % (AUTO) 4.4 % (0.0-13.0); NEUTROPHILS # (AUTO) 6.1 x10^3/uL (2.2-4.8); NEUTROPHILS % (AUTO) 89.5 % (42.0-75.0); RED CELL DISTRIBUTION WIDTH 14.2 % (11.6-16.5); WHITE BLOOD COUNT 6.8 X10^3/uL (3.6-10.0)
[2021-10-28 06:30] LABS: BLOOD UREA NITROGEN 21 mg/dL (7-18); CALCIUM 7.8 mg/dL (8.5-10.1); CARBON DIOXIDE 23.3 mmol/L (21-32); CHLORIDE 108 mmol/L (98-107); COR NA(FOR HYPERGLY) 140 mmol/L (136-145); CREATININE 0.91 mg/dL (0.70-1.30); SODIUM 139 mmol/L (136-145); eGFR NON BLACK RACES > 60 (>60)
--- NOTE | 2021-10-28 06:59 | RAD ---
HISTORYSOBSTUDYPortable AP chestCOMPARISONFebruary 2021FINDINGSContinued normal heart size and contour with similar extent and distribution of scattered indistinct bilateral pulmonary infiltrates. No additional consolidation or other pulmonary involvement noted. Pleural spaces remain well defined.IMPRESSIONNo change. Findings remain consistent with pneumonia.Electronically signed by: JOLLY FERNANDEZ (Oct 28, 2021 06:58:04)
[2021-10-28] MEDS: BROVANA IN SCH (08:50)
[2021-10-28] MEDS: PULMICORT NEB TX 0.5 MG NEB SCH (08:50)
[2021-10-28 10:41] VITALS: BP 118/61
== END 2021-10-28 11:30 | disposition home or self-care (01) | DRG 177 ==
LOC: ER 16:06 → ICU 19:38
PROVIDERS: ADMIT Internal Medicine; ATTEND Internal Medicine